=== PATIENT | female | born 2000 | race Hispanic/Latino ===

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

== ENCOUNTER 2021-09-04 19:32 | Emergency (ER) | payer MEDICAID, OTHER ==
[~2021-09-04] VITALS: Ht 165.1 cm; Wt 69.4 kg
[2021-09-04] MEDS ORDERED: IBUPROFEN 600 MG TABLET PO ONE (21:30)
[2021-09-04] MEDS ORDERED: IBUP-2070 PO (23:59)
[2021-09-05 00:43] VITALS: BP 119/69
== END 2021-09-05 00:42 | disposition home or self-care (01) ==
LOC: EDH 19:32
DX: S00.531A Contusion of lip, initial encounter (principal); S80.12XA Contusion of left lower leg, initial encounter; S80.11XA Contusion of right lower leg, initial encounter; M54.2 Cervicalgia; V49.49XA Driver injured in collision with other motor vehicles in traffic accident, initial encounter; Y93.89 Activity, other specified; Y92.413 State road as the place of occurrence of the external cause; Y99.8 Other external cause status
CPT/HCPCS: 36415; 72125; 81025